=== PATIENT | male | born 1950 | race Hispanic/Latino ===

== ENCOUNTER 2019-08-11 18:36 | Emergency (ER) | payer MEDICARE, OTHER ==
[2019-08-11 19:26] VITALS: BP 113/65
[2019-08-11] MEDS ORDERED: MORPHINE 2 MG/1 ML INJ IV ONE (19:36)
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
== END 2019-08-11 21:15 | disposition home or self-care (01) ==
LOC: ED 18:36
DX: T22.212A Burn of second degree of left forearm, initial encounter (principal); T23.101A Burn of first degree of right hand, unspecified site, initial encounter; F17.200 Nicotine dependence, unspecified, uncomplicated; F10.10 Alcohol abuse, uncomplicated; Z85.46 Personal history of malignant neoplasm of prostate; Z95.810 Presence of automatic (implantable) cardiac defibrillator; Z79.899 Other long term (current) drug therapy; Y26.XXXA Exposure to smoke, fire and flames, undetermined intent, initial encounter; Y93.89 Activity, other specified; Y92.89 Other specified places as the place of occurrence of the external cause; Y99.8 Other external cause status
CPT/HCPCS: 16000; 96374; 99283; J2270